=== PATIENT | female | born 1995 | race Caucasian/White ===

== ENCOUNTER 2025-02-23 05:42 | Inpatient (IN) | payer BC, SELFPAY ==
[2025-02-23 05:44] VITALS: BMI 31.6
[2025-02-23 05:58] VITALS: BP 115/59
[2025-02-23] MEDS: LR 1000 IV ×2 (06:27→08:07)
[2025-02-23 06:43] LABS: Hematocrit 39.6 % (37.0-47.0); Hemoglobin 14.0 g/dL (12.0-16.0); Mean Corp Hgb Conc. 35.4 g/dL (33.0-37.0); Mean Corpuscular Volume 92.7 fL (81.0-99.0); Nucleated Red Blood Cells % 0 %; Platelet Count 202 10^3/uL (130-400); Red Cell Dist. Width 13.2 % (11.5-14.5)
[2025-02-23] MEDS: FENTANYL/BUPIVACAINE 100 EPIDURAL (08:33)
[2025-02-23] MEDS: SUBLIMAZE 100 MCG EPIDURAL (08:33)
[2025-02-23] MEDS: ANCEF 10 IV (13:30)
[2025-02-23] MEDS: ZITHROMAX INFUSION 250 IV (15:40)
[2025-02-23 16:13] LABS: Cord VBG B.E. - POC -1.8 mmol/L; Cord VBG HCO3 - POC 23 mmol/L; Cord VBG O2 Sat % - POC 59.3 %; Cord VBG pCO2 - POC 39 mmHg; Cord VBG pH - POC 7.38; Cord VBG pO2 - POC 31 mmHg
[2025-02-23] MEDS: COLACE 100 MG PO (21:00)
[2025-02-23] MEDS: TORADOL 15 MG IV (22:04)
[2025-02-24] MEDS: TORADOL 15 MG IV ×3 (03:48→15:59)
[2025-02-24 04:37] LABS: Hematocrit 34.8 % (37.0-47.0); Hemoglobin 12.3 g/dL (12.0-16.0); Mean Corp Hgb Conc. 35.3 g/dL (33.0-37.0); Mean Corpuscular Volume 95.9 fL (81.0-99.0); Platelet Count 190 10^3/uL (130-400); Red Cell Dist. Width 13.2 % (11.5-14.5)
--- NOTE | 2025-02-24 07:35 | W.PN.ANS.POP ---
Anesthesia Post Operative
- Anesthesia Post Op Note
Vital Signs Stable-See Nursing Note: Yes
Airway Patent: Yes
Adequate Pain Control: Yes
Change in Mental Status: No
Current Postoperative Nausea & Vomiting: No
Anesthesia Complications: No
General Anesthetic Recall: No
Unplanned Admission: No
Post Op Hydration Adequate: Yes
[2025-02-24] MEDS: COLACE 100 MG PO ×2 (09:06→20:18)
[2025-02-24] MEDS: MYLICON 80 MG PO (09:06)
[2025-02-24] MEDS: TYLENOL 650 MG PO (20:27)
[2025-02-24] MEDS: MOTRIN 600 MG PO (21:57)
[2025-02-25] MEDS: TYLENOL 650 MG PO ×5 (04:29→23:44)
[2025-02-25] MEDS: MOTRIN 600 MG PO ×4 (04:30→23:45)
[2025-02-25] MEDS: COLACE 100 MG PO ×2 (08:43→23:45)
[2025-02-25 11:37] LABS: Syphilis/T. pallidum Ab Reflex Negative (Negative)
[2025-02-26] MEDS: TYLENOL 650 MG PO ×2 (06:36→11:09)
[2025-02-26] MEDS: MOTRIN 600 MG PO (06:36)
[2025-02-26] MEDS: COLACE 100 MG PO (09:05)
--- NOTE | 2025-02-26 09:33 | W.DS.TRANS ---
DC Summary - Tooling Supervisor
-
Discharge Instructions:
Discharge Diagnosis/Procedures 39w4d labor; recurrent fht
decelerations, persistent cat2 tracing; urgent
primary LTCS; occiput posterior, nuchal cord
Diet Regular
Activity No strenuous activity
Driving Restrictions No driving for 2 weeks
Bathing Restrictions OK to Shower
Instructions:
Stand-Alone Forms: LDRP Delivery
Changes to Home Medications: No
Discharge Medications:
DC Medications w/original date entered in [employer]
1 tab PO DAILY Supplement 02/23/25
ibuprofen 600 mg tablet 600 mg PO Q6HPRN PRN cramps #90 tabs 02/26/25
Home Medication Changes
Pending Results: No
== END 2025-02-26 12:18 | disposition home or self-care (01) | DRG 787 ==
LOC: LDRP 05:42
PROVIDERS: Obstetrics & Gynecology; ADMITTING PHYSICIAN Obstetrics & Gynecology
PROC: 6A550ZT Pheresis of Cord Blood Stem Cells, Single (ICD-10-PCS; 2025-02-23)
PROC: 10D00Z1 Extraction of Products of Conception, Low, Open Approach (ICD-10-PCS; 2025-02-23)
DX: O69.81X0 Labor and delivery complicated by cord around neck, without compression, not applicable or unspecified (principal); O99.354 Diseases of the nervous system complicating childbirth; Z3A.39 39 weeks gestation of pregnancy; Z37.0 Single live birth; O76 Abnormality in fetal heart rate and rhythm complicating labor and delivery; O32.8XX0 Maternal care for other malpresentation of fetus, not applicable or unspecified; O77.0 Labor and delivery complicated by meconium in amniotic fluid; G43.909 Migraine, unspecified, not intractable, without status migrainosus
CPT/HCPCS: 36415; 85025; 85027; 86780; 86850; 86900; 86901; 88307